=== PATIENT | female | born 1990 | race Two or more races ===

== ENCOUNTER 2017-04-18 20:22 | Emergency (ER) | payer MEDICAID ==
[~2017-04-18 20:22] MED LIST: COLACE100 M1 PO; IBUPROFEN800 M1 PO; MACROBID 100 M100 M1 PO; MILK OF MAGNESIA PO; NORCO 5-325 TA1 EACH PO; PRENATAL 19 TA1 EAC1 PO; PRENATAL TABLE1 EAC3 PO; TUMS ULTRA400 MG; TYLENOL325 M2 PO
[2017-04-18] MEDS ORDERED: ERYTHROMYCIN1 GM OP (21:35)
[2017-05-10] MEDS ORDERED: NO HOME MEDICATION (09:15)
[2017-05-10] MEDS ORDERED: IBUPROFEN800 M1 PO (16:39)
[2017-05-12] MEDS ORDERED: NORCO 5-325 TA1 EACH PO (07:41)
[2017-05-12] MEDS ORDERED: PRENATAL-U CAPS1 CAP PO (07:46)
[2017-05-19] MEDS ORDERED: AMOXICILLIN500 M1 PO (09:59)
== END 2017-04-18 21:53 ==
LOC: EDMED 20:22
DX: S05.01XA Injury of conjunctiva and corneal abrasion without foreign body, right eye, initial encounter (principal); X58.XXXA Exposure to other specified factors, initial encounter